=== PATIENT | female | born 1975 | race Caucasian/White ===

== ENCOUNTER 2022-09-07 14:05 | Outpatient (OUT) | payer OTHER, SELFPAY ==
--- NOTE | 2022-09-07 14:13 | XR_ITS ---
The [address] [address] Patient Name: EMILIANO POOLE MRN: [id number] date: 1975 Sex: F Assigned Patient Location: [facility] Current Patient Location: [facility] Accession/Order Number: [id number] Exam Date: 09/07/2022 14:18 Report Date: 09/10/2022 09:18 At the request of: NNAMDI CABA Procedure: XR shoulder SHABANA min 2V EXAMINATION: XR shoulder SHABANA min 2V HISTORY: Recent fall COMPARISON: No relevant comparison available. FINDINGS: RIGHT FINDINGS: BONES: Normal. No significant arthropathy or acute abnormality. SOFT TISSUES: Negative. No visible soft tissue swelling. OTHER: Negative. LEFT FINDINGS: BONES: Normal. No significant arthropathy or acute abnormality. SOFT TISSUES: Negative. No visible soft tissue swelling. OTHER: Negative. XR/XR shoulder SHABANA min 2V IMPRESSION: RIGHT CONCLUSION: No acute radiographic abnormality LEFT CONCLUSION: No acute radiographic abnormality Electronically authenticated by: LAISHA HI Date: 09/10/2022 09:18
== END 2022-09-07 14:06 | disposition home or self-care (01) ==
LOC: RAD 14:08
PROVIDERS: PCP Nurse Practitioner; Visit Provider Nurse Practitioner
DX: Z91.81 History of falling (principal)
CPT/HCPCS: 73030

== ENCOUNTER 2022-11-28 07:37 | Outpatient (OUT) | payer OTHER, SELFPAY ==
--- NOTE | 2022-11-28 07:39 | MM_ITS ---
Patient: EMILIANO POOLE Exam Date: 11/28/2022 : 1975 Gender:F Ordering : DR Alfred Gupta . Admission #: [id number] Family : MRS. NNAMDI CABA . Order #: [id number] CLICK HERE TO VIEW EXAM RADIOLOGY REPORT PROCEDURE: MM TOMOSYNTHESIS SCREENING BI COMPARISON: MG MAMM SCREEN 3D SHABANA CAD, 11/23/2021. MG MAMM SCREEN 3D SHABANA CAD, 11/02/2020. INDICATIONS: Screening Calculator Name NCI Breast Cancer Risk Assessment Tool 5 Year Breast Cancer Risk 0.80% Lifetime Breast Cancer Risk 9.70% Personal Breast Cancer No Personal Ovarian Cancer No Treatments None Family Cancers None LOCATION: [facility] BREAST COMPOSITION: Heterogeneously dense,which may obscure small masses. FINDINGS: DIAGNOSTIC CATEGORY 1--NEGATIVE. NO CHANGE FROM COMPARISON ASSESSMENT. Scattered benign-appearing lymph nodes are present. RIGHT BREAST: No significant suspicious finding. LEFT BREAST: No significant suspicious finding. RECOMMENDATIONS: ROUTINE MAMMOGRAM AND CLINICAL EVALUATION IN 12 MONTHS. PLEASE NOTE: A NORMAL MAMMOGRAM DOES NOT EXCLUDE THE POSSIBILITY OF BREAST CANCER. A CLINICALLY SUSPICIOUS PALPABLE LUMP SHOULD BE BIOPSIED. Dictated by: Mitch Torres MD on 11/28/2022 at 10:48 Approved by: Mitch Torres MD on 11/28/2022 at 10:49
== END 2022-11-28 07:38 | disposition home or self-care (01) ==
LOC: MAMMO 07:37
PROVIDERS: PCP Nurse Practitioner; Visit Provider Obstetrics & Gynecology
DX: Z12.31 Encounter for screening mammogram for malignant neoplasm of breast (principal)
CPT/HCPCS: 77063; 77067

== ENCOUNTER 2022-12-17 20:50 | Outpatient (REF) | payer OTHER, SELFPAY ==
[2022-12-21 17:11] LABS: Age Gdln ACOG Testing Note (.); HPV Aptima Negative (Negative); IGP, Aptima HPV, rfx 16/18,45 Note (.)
== END 2022-12-17 20:51 | disposition home or self-care (01) ==
LOC: LAB 20:50
PROVIDERS: PCP Nurse Practitioner; Visit Provider Obstetrics & Gynecology
DX: Z01.419 Encounter for gynecological examination (general) (routine) without abnormal findings (principal)
CPT/HCPCS: 87624; G0145